=== PATIENT | male | born 1945 | race Caucasian/White ===

== ENCOUNTER → 2018-01-14 | Outpatient (CLI) | payer MEDICARE ==
[2018-01-14 10:23] LABS: HCT 44.4 % (39.0-53.0); HGB 14.4 gm/dL (13.0-17.5); MCHC 32.5 g/dL (31.0-37.0); MCV 89.5 fL (80.0-100.0); Platelet Count 237 k/uL (150-450); RBC 4.96 m/uL (4.30-5.90); RDW 12.7 % (11.5-15.5); WBC 8.2 k/uL (3.8-10.6)
[2018-01-14 10:33] LABS: ALT 32 U/L (21-72); AST 14 U/L (17-59); Albumin 4.2 g/dL (3.5-5.0); Alkaline Phosphatase 95 U/L (38-126); Anion Gap 13 mmol/L; Blood Urea Nitrogen 24 mg/dL (9-20); Calcium 9.7 mg/dL (8.4-10.2); Carbon Dioxide 22 mmol/L (22-30); Chloride 108 mmol/L (98-107); Glucose 90 mg/dL (74-99); Potassium 4.7 mmol/L (3.5-5.1); Sodium 143 mmol/L (137-145); Total Bilirubin 0.3 mg/dL (0.2-1.3); Total Protein 7.1 g/dL (6.3-8.2)
[2018-01-14 10:37] LABS: Partial Thromboplastin Time 25.9 sec (22.0-30.0); Prothrombin Time 9.9 sec (9.0-12.0)
[2018-01-14 10:44] LABS: Appearance,Urine Clear (Clear); Bilirubin,Urine Negative (Negative); Blood,Urine Small (Negative); Color,Urine Yellow; Glucose,Urine (UA) Negative (Negative); Ketones,Urine Negative (Negative); Leukocyte Esterase,Urine Negative (Negative); Mucus,Urine Rare /hpf; Nitrite,Urine Negative (Negative); Protein,Urine Negative (Negative); RBC,Urine 1 /hpf (0-5); Specific Gravity,Urine 1.019 (1.001-1.035); Squamous Epithelial Cell,Urine <1 /hpf (0-4); Transitional Epi Cells,Urine <1 /hpf (0-1); Urobilinogen,Urine <2.0 mg/dL (<2.0); WBC,Urine 1 /hpf (0-5)
== END | disposition home or self-care (01) ==
LOC: LABPAT 09:16
PROVIDERS: ATTEND Orthopaedic Surgery Sports Medicine
DX: Z01.812 Encounter for preprocedural laboratory examination (principal); Z79.01 Long term (current) use of anticoagulants; Z01.818 Encounter for other preprocedural examination
CPT/HCPCS: 80053; 81001; 85027; 85610; 85730; 87070

== ENCOUNTER → 2018-01-20 | Outpatient (CLI) | payer MEDICARE ==
--- NOTE | 2018-01-20 09:09 | CT ---
EXAMINATION TYPE: CT shoulder LT wo con DATE OF EXAM: 01/20/2018 COMPARISON: NONE HISTORY: Left sided shoulder pain and decreased range of motion. No known injury CT DLP: 460 mGycm Automated exposure control for dose reduction was used. FINDINGS: There is complete loss of the glenohumeral joint space with remodeling of the glenoid. Hypertrophic s purring along the inferior margin of the humeral head. No acute fracture. Benign cystic changes involving the head likely post arthritic. There is arthropathy of the AC joint with narrowing of the joint space and hypertrophic spurring like ly result in a degree of impingement. There is calcification along the expected course of the biceps tendon suggestive of calcific tendinos is. There also suggestion of markedly increased fluid surrounding the biceps tendon correlate for bic ipital tendinosis. Coronary artery calcification is seen. Visualized lung baptiste clear. IMPRESSION: 1. Severe arthropathy of the glenohumeral joint with complete loss of joint space and remodeling the glenoid. Suspect there is cartilaginous loss along the articular surface. 2. [id number] AC joint arthropathy with probable impingement. 3. Increased fluid surrounding the biceps tendon within the groove. Additionally is calcification meño ng the expected course of the biceps tendon near the rotator interval. Correlate for calcific tendino sis.
== END | disposition home or self-care (01) ==
LOC: RADCTMAIN 08:26
PROVIDERS: ATTEND Orthopaedic Surgery Sports Medicine
DX: M12.812 Other specific arthropathies, not elsewhere classified, left shoulder (principal)

== ENCOUNTER 2018-02-05 13:47 | Inpatient (IN) | payer MEDICARE ==
[2018-01-26 14:25] VITALS: BMI 27.9
[~2018-02-05 13:47] MED LIST: ACETAMINOPHEN TAB 500 MG TAB PO ONE; LIDOCAINE 1% 20 ML VIAL (10MG/ML) FOR IV START INTRADERMA PRN; MELOXICAM 7.5 MG TAB PO ONE; ONDANSETRON 4 MG/2 ML VIAL IVP ONE; TRANEXAMIC ACID 1,000 MG in SODIUM CHLORIDE 0.9% 50 ML IVPB ONE; ceFAZolin IN SWFI 2 GM/20 ML SYRINGE IVP ONE; fentaNYL (PF) 50 MCG/ML 2 ML AMP IV PRN
[2018-02-05] MEDS ORDERED: LIDOCAINE 1% 20 ML VIAL (10MG/ML) FOR IV START IV ONE (14:17)
[2018-02-05] MEDS ORDERED: DEXAMETHASONE SOD PHOSPHATE 10 MG/ML 1 ML VIAL IV ONE (14:17)
[2018-02-05] MEDS: LACTATED RINGERS 1,000 ML IV SCH ×2 (14:17→20:38)
[2018-02-05 14:19] LABS: Glucose,Whole Blood 97 mg/dL (75-99)
[2018-02-05] MEDS ORDERED: PHENYLEPHRINE-0.9% NACL SYG 1 MG/10 ML SYRINGE ONE (15:01)
[2018-02-05] MEDS ORDERED: MIDAZOLAM 2 MG/2 ML VIAL ONE (15:01)
[2018-02-05] MEDS ORDERED: NEOSTIGMINE 1 MG/ML 10 ML VIAL ONE (15:01)
[2018-02-05] MEDS ORDERED: PROPOFOL 10 MG/ML 20 ML VIAL IV ONE (15:01)
[2018-02-05] MEDS ORDERED: ROCURONIUM BROMIDE 10 MG/ML 10 ML VIAL IV ONE (15:01)
[2018-02-05] MEDS ORDERED: SUCCINYLCHOLINE CHLORIDE 100 MG/5 ML SYR IV ONE (15:01)
[2018-02-05] MEDS ORDERED: TRANEXAMIC ACID 1,000 MG/10 ML VIAL ONE (15:01)
[2018-02-05] MEDS ORDERED: SODIUM CHLORIDE 0.9% 100 ML BAG ONE (15:01)
[2018-02-05] MEDS ORDERED: fentaNYL (PF) 50 MCG/ML 2 ML AMP ONE (15:01)
[2018-02-05] MEDS ORDERED: ePHEDrine SULFATE/0.9% NACL/PF 50 MG/5 ML SYRINGE IV ONE (15:01)
[2018-02-05] MEDS ORDERED: LIDOCAINE 1% INJ 10MG/ML (20 ML MDV) ONE (15:01)
[2018-02-05] MEDS ORDERED: GLYCOPYRROLATE 0.2 MG/ML 2 ML VIAL ONE (15:01)
[2018-02-05] MEDS ORDERED: ROPIVACAINE 5 MG/ML 30 ML VIAL ONE (15:01)
[2018-02-05] MEDS ORDERED: ceFAZolin 3,000 MG in SODIUM CHLORIDE 0.9% IRRIGATIO 3,000 ML IRRIGATION ONE (15:36)
[2018-02-05] MEDS ORDERED: LACTATED RINGERS 1,000 ML IV ONE (15:38)
[2018-02-05] MEDS ORDERED: VANCOMYCIN 1,000 MG VIAL MISCELLANE ONE (15:54)
[2018-02-05] MEDS ORDERED: METOCLOPRAMIDE 5 MG/ML 2 ML VIAL IVP PRN (17:32)
[2018-02-05] MEDS ORDERED: MORPHINE SULFATE 4MG/4ML SYRG IVP PRN ×3 (17:32)
[2018-02-05] MEDS ORDERED: ONDANSETRON 4 MG/2 ML VIAL IVP PRN (17:32)
[2018-02-05] MEDS ORDERED: diphenhydrAMINE 25 MG CAP PO PRN (17:32)
[2018-02-05] MEDS ORDERED: PROCHLORPERAZINE SUPPOSITORY 25 MG SUPP RECTAL PRN (17:32)
[2018-02-05] MEDS ORDERED: TEMAZEPAM 15 MG CAP PO PRN (17:32)
[2018-02-05] MEDS ORDERED: HYDROcodone/APAP 7.5-325MG 1 EACH TAB PO PRN (17:35)
[2018-02-05 17:53] LABS: Glucose,Whole Blood 142 mg/dL (75-99)
--- NOTE | 2018-02-05 17:55 | XR ---
EXAMINATION TYPE: XR shoulder limited LT DATE OF EXAM: 02/05/2018 COMPARISON: NONE HISTORY: Shoulder surgery TECHNIQUE: Single view FINDINGS: There is a left shoulder prosthesis. Components appear in anatomic position. I see no compl icating process. IMPRESSION: No complicating process seen.
--- NOTE | 2018-02-05 18:36 | OP ---
OPERATIVE REPORT DATE OF PROCEDURE: 02/05/2018. SURGEON: Dilshad Leyva MD BEAUTY COUNSELOR: Camilo Caruso PA-C PREOPERATIVE DIAGNOSIS: Left shoulder osteoarthritis. POSTOPERATIVE DIAGNOSIS: Left shoulder osteoarthritis. OPERATION: 1. Left total shoulder arthroplasty. 2. Left shoulder long head of the biceps tenodesis. ANESTHESIA: General endotracheal. ESTIMATED BLOOD LOSS: 300 mL DRAINS: One deep drain. COMPLICATIONS: None apparent. DISPOSITION: Post-anesthesia Care Unit. INDICATIONS: Mr. Suazo is a very pleasant 72-year-old gentleman with long-standing left shoulder pain. Workup including x-rays revealed advanced osteoarthrosis of the left shoulder. At this point it is felt that he has failed conservative management and he would like to proceed with operative intervention. The risks of the procedure were discussed with him in detail. These risks include but are not limited to risk of infection, nerve damage, bleeding, pain, instability in the shoulder, loosening of the implants and deep infection. There is also a small risk of deep vein thrombosis which could lead to fatal pulmonary embolism. The patient understood the risks. All of his questions with regards to the risks of the procedure were answered to his satisfaction. Appropriate informed consent was obtained. DESCRIPTION OF THE PROCEDURE: The patient was identified in the preoperative holding area. Surgical site was marked by both the patient and myself. He was given 2 grams of Ancef IV for prophylactic purposes. He was then transferred to the operative suite. He was placed supine on the operating room table. General anesthetic was then administered and dosed per the anesthesia department without apparent complication. Examination under anesthesia was then performed of the left shoulder. He had elevation to 110 degrees. External rotation at the side was to 20 degrees. The patient's left upper extremity was then prepped and draped in the usual sterile fashion. Standard surgical pause was then undertaken to ensure that we were operating on the correct site and that appropriate preoperative antibiotics had been given. All staff in the room were in agreement and we proceeded. The acromion, AC joint, clavicle and coracoid were marked with a surgical pen. A planned incision starting at the level of the clavicle and extending distally over the deltopectoral interval approximately 1 cm lateral to the coracoid was marked with a surgical pen. The incision was then made with a 10-blade scalpel. Dissection was carried down sharply to the deltoid fascia. The deltopectoral interval was identified at the level of the clavicle. A small band retractor was placed onto the proximal deltoid. I then released the deltoid fascia on the lateral aspect of the cephalic vein. The vein was left in its bed medially. The cephalic vein was protected throughout the entire case. I then identified the clavipectoral fascia. It was incised proximally to the level of the coracoacromial ligament. The coracoacromial ligament was left intact. I then used my finger to spread the interval between the conjoint tendon and the subscapularis. I felt for the axillary nerve, which was readily palpable. I then cleared the subacromial and subdeltoid spaces of bursal and scar tissue. I then utilized a Dumont retractor to hold the deltoid and expose the humeral head. I then proceeded with release of the subscapularis and the anterior and inferior shoulder capsule. The rotator cuff was inspected. It was found to be intact. The rotator interval was identified. The course of the biceps tendon was also identified. I then released the biceps from its sheath. I did a soft tissue tenodesis with multiple 0 Vicryl interrupted sutures into the surrounding soft tissue. I then released the rotator interval. It was released at the base of the coracoid and then out laterally. The subscapularis and the capsule were then released intratendinously. The subscapularis and capsule were released, extended distally in a lazy-S fashion approximately 1 cm medial to the biceps tendon. I then continued to release the capsule along the inferior neck in a vertical fashion to about the 6 o'clock position. Great care was taken to ensure that the capsule was always visualized as it was released to avoid injuring the axillary nerve. I then brought a Marsh melting supervisor with the arm externally rotated and abducted. I continued to release the capsule inferomedially to the 4 o'clock position. The inferior osteophytes were now removed as well. This was done with a rongeur. I then proceeded with preparation of the humerus. I removed all the goat's faust osteophytes. I then removed the subchondral plate from the superior aspect of the humeral head utilizing a large rongeur. I then used a starter reamer to gain access to the humeral canal. This was approximately 1 cm medial to the rotator cuff insertion and 1 cm posterior to the bicipital groove. I then prepared the humeral canal with hand reaming. I started with a 6 mm reamer and progressed incrementally until firm resistance was encountered. This was at 15 mm. The reamer handle was then left in place. I then utilized a humeral resection guide set at 30 degrees of retrotorsion. The cutting block was set 1 to 2 mm above the insertion of the rotator cuff. I then proceeded to osteotomize the head with an oscillating saw. I removed the resection guide and then completed the osteotomy. I then proceed with trial stem placement. A trial size was then broached up to a trial size 15. This was done at 30 degrees of retroversion. The 15 mm trial stem was then placed. I then proceeded with trial reduction. I started with a 46 x 18 head. This seemed a little loose. I then increased to 46 x 21 x 50 head, which seemed to fit very nicely. The head fit opposite the glenoid. The rotator cuff was not tented. The internal rotation was 90 degrees. Elevation was to 150 degrees and the translation was one half the humeral head in neutral rotation and one quarter of the humeral head inferiorly in 15 to 20 degrees of abduction. I then removed the trial head. The stem was left in place to protect the proximal humerus. I then proceeded with exposure of the glenoid. At this point a bone hook was used to pull the humerus out laterally. I inspected the joint for any loose bodies. The condition of the cuff again was inspected. It was in good condition. There was no evidence of any tearing. The Bhattman retractor was then placed on the posterior glenoid rim. The arm was placed in approximately 80 degrees of abduction and in slight flexion on the Marsh stand. I then proceeded to remove the hypertrophic labrum to definitively identify the actual glenoid. I then selected the size of the glenoid. A large-size glenoid seemed to fit very nicely. I then utilized a starter drill to make the centering hole. I then proceeded to ream the glenoid fossa. This was done with a large-size reamer. The reaming was taken down to paprika signs. I had a nice bleeding surface. There was a tiny bit of posterior inferior loss, and I preferentially took a slightly more anterior glenoid with the reaming. I then proceeded to place the glenoid drill holes. The peripheral drill holes were then placed and the center hole was drilled as well. I then placed the trial large-size glenoid, and it fit very nicely onto the glenoid. I then proceeded with cementing. I Waterpik'd the wound and the bone. The drill holes were then packed with [employer] sponges. The cement was mixed on the back table by the cosmetic sales assistant. The drill holes were then packed with cement utilizing a 20 mL syringe. These were packed very tightly. A small amount of cement was then placed on the posterior aspect of the real glenoid component. I then impacted the real glenoid component into place. It was a Biomet large-sized pegged glenoid component with a Regenerex central peg. Excess cement was removed utilizing a freer elevator. Pressure was held on the glenoid component until the cement had hardened. I then removed the Bhattman retractor. We then proceeded with a humeral component trial reduction with the real glenoid. The 46 x 21 x 50 head was then placed back onto the stem. Again this was taken through a trial. The head up of the glenoid. The rotator cuff was not tented. Elevation was 150 degrees. Internal rotation was to 90 degrees and translation was one half of the head in neutral rotation and one quarter of the head in 15 to 20 degrees of abduction. I then had the sales account representative open a 46 x 21 x 50 real head and a size 15 Biomet Mini Stem. The stem was then impacted into the canal in 30 degrees of retrotorsion. The real head was then impacted onto the stem. The shoulder was reduced. Prior to placing the real head, I placed multiple 0 Vicryl interrupted sutures to close the rotator interval. I then proceeded with closure. The wound was again thoroughly irrigated with sterile saline solution with antibiotic added. The rotator interval sutures were tied tightly. The subscapularis and anterior capsule were repaired with #2 FiberWire. The wound was again thoroughly irrigated with sterile saline solution with antibiotic added. A deep drain was then placed and brought out superiorly away from the incision. Vancomycin powder was then spread in the wound. Again the deltopectoral interval was then closed with interrupted 0 Vicryl suture. Again the wound was thoroughly irrigated. The remainder of the 1 gram of vancomycin powder was then placed in the wound. Subcutaneous tissue was closed with 2-0 Vicryl interrupted suture and the skin was closed with a running 3-0 Quill suture. Dermabond was applied to the incision. Sterile compressive dressing was then applied. The patient's left upper extremity was placed into a standard sling. All sponge and needle counts were deemed correct prior to closure. The patient tolerated the procedure without apparent complication. He was transferred to the recovery room in stable condition. DEBORA / YOVANY: [id number] /
[2018-02-05] MEDS: DOXYCYCLINE 50 MG CAP PO SCH (20:41)
[2018-02-05 21:34] LABS: Glucose,Whole Blood 151 mg/dL (75-99)
[2018-02-05] MEDS: ceFAZolin IN SWFI 2 GM/20 ML SYRINGE IVP SCH (23:12)
[2018-02-06] MEDS: HYDROcodone/APAP 7.5-325MG 1 EACH TAB PO PRN ×4 (05:50→21:29)
[2018-02-06] MEDS: LACTATED RINGERS 1,000 ML IV SCH ×4 (06:02→21:28)
[2018-02-06 07:10] LABS: Basophils % (A) 0 %; Eosinophils % (A) 0 %; HCT 35.3 % (39.0-53.0); Lymphocytes # (A) 1.5 k/uL (1.0-4.8); Lymphocytes % (A) 15 %; MCH 29.4 pg (25.0-35.0); MCHC 33.9 g/dL (31.0-37.0); MCV 86.8 fL (80.0-100.0); Mean Platelet Volume 7.3; Monocytes # (A) 0.7 k/uL (0-1.0); Monocytes % (A) 7 %; Neutrophils # (A) 7.9 k/uL (1.3-7.7); Neutrophils % (A) 76 %; Platelet Count 192 k/uL (150-450); RBC 4.07 m/uL (4.30-5.90); RDW 12.5 % (11.5-15.5); WBC 10.3 k/uL (3.8-10.6)
--- NOTE | 2018-02-06 07:10 | P.ONQ ---
Anesthesiology Proc Note - PNB - Peripheral Nerve Block Performed Left Interscalene Single Time Out Performed: Yes Procedure Start Time: 18:23 Procedure Stop Time: 18: Indication: Acute Post-Operative Pain, Requested by physician Sedation Type: Sedate with meaningful contact maintained Preparation: Sterile Prep Needle Size: 50mm (2") Needle Gauge: 21 Technique: Ultrasound (ropi .5% 30cc) Blood Aspirated: No Pain Paresthesia on Injection Noted: No Resistance on Injection: Normal Events: Uneventful and Well Tolerated
[2018-02-06 07:12] LABS: Glucose,Whole Blood 109 mg/dL (75-99)
[2018-02-06] MEDS: DOXYCYCLINE 50 MG CAP PO SCH ×2 (08:01→21:00)
[2018-02-06] MEDS: ceFAZolin IN SWFI 2 GM/20 ML SYRINGE IVP SCH (08:02)
--- NOTE | 2018-02-06 09:25 | P.DS ---
Providers Date of admission: 02/05/18 13:47 Expected date of discharge: 02/06/18 Attending physician: Dilshad Leyva Consults: 02/05/18 17:32 Consult Physician Routine Consulting Provider: Clifton Yoder Reason/Comments: post op medical management Do you want consulting provider notified?: Yes Primary care physician: Clifton Yoder - Discharge Diagnosis(es) (1) Osteoarthritis of left shoulder Patient was admitted to the OR on 02/05/2018 to undergo Left Total Shoulder Arthroplasty. He had failed conservative measures as an outpatient and desired to proceed with elective surgery after given informed consent He underwent the above procedure which he tolerated well without complication. Postoperative hospital course has remained without complication. On day of discharge he is afebrile, vital signs stable, labs within acceptable ranges, tolerating by mouth meds and diet, voiding without difficulty, positive flatus, denies abdominal pain or calf pain, pain is controlled on oral pain medication and has no new complaints. Wound is benign, neurovascular status is intact, calf is soft and nontender, abdomen soft and nontender. Review of systems is negative for numbness, tingling, fever, chills, chest pain, shortness breath, nausea, vomiting, dizziness, headaches, slurred speech or other. Current Visit: Yes Status: Acute Priority: Medium Procedures: Left Total Shoulder Arthroplasty Patient Condition at Discharge: Good Plan - Discharge Summary Discharge Rx Participant: No New Discharge Prescriptions: New Docusate [Colace] 100 mg PO BID #60 capsule Doxycycline Hyclate 100 mg PO BID #10 tab HYDROcodone/APAP 7.5-325MG [Holton 7.5-325] 1 - 2 tab PO Q6HR PRN #60 tab PRN Reason: Pain No Action metFORMIN HCL [Glucophage] 500 mg PO BID Simvastatin [Zocor] 20 mg PO HS Sertraline [Zoloft] 200 mg PO HS Ibuprofen [Motrin] 800 mg PO BID Gabapentin [Neurontin] 300 mg PO BID Discharge Medication List Gabapentin [Neurontin] 300 mg PO BID 01/26/18 [History] Ibuprofen [Motrin] 800 mg PO BID 01/26/18 [History] Sertraline [Zoloft] 200 mg PO HS 01/26/18 [History] Simvastatin [Zocor] 20 mg PO HS 01/26/18 [History] metFORMIN HCL [Glucophage] 500 mg PO BID 01/26/18 [History] Docusate [Colace] 100 mg PO BID #60 capsule 02/06/18 [Rx] Doxycycline Hyclate 100 mg PO BID #10 tab 02/06/18 [Rx] HYDROcodone/APAP 7.5-325MG [Holton 7.5-325] 1 - 2 tab PO Q6HR PRN #60 tab [Rx] Follow up Appointment(s)/Referral(s): Dilshad Leyva MD [STAFF PHYSICIAN] - 2 Weeks Activity/Diet/Wound Care/Special Instructions: Keep wound clean and dry Take meds as directed Follow-up with Dr. Leyva in office Non weightbearing Discharge Disposition: HOME SELF-CARE
[2018-02-06 11:15] LABS: Glucose,Whole Blood 114 mg/dL (75-99)
[2018-02-06] MEDS: hydrOXYzine PAMOATE 25 MG CAP PO PRN ×3 (11:35→21:38)
[2018-02-06] MEDS ORDERED: HYDROmorphone 2 MG TAB PO PRN ×3 (11:44→11:48)
[2018-02-06] MEDS ORDERED: TAMSULOSIN 0.4 MG CAP.ER.24H PO SCH ×2 (11:45→18:30)
[2018-02-06 11:50] LABS: Anion Gap 10 mmol/L; Blood Urea Nitrogen 22 mg/dL (9-20); Calcium 8.6 mg/dL (8.4-10.2); Carbon Dioxide 23 mmol/L (22-30); Chloride 105 mmol/L (98-107); Glucose 100 mg/dL (74-99); Sodium 138 mmol/L (137-145)
--- NOTE | 2018-02-06 15:09 | P.CONS ---
History of Present Illness - Reason for Consult Consult date: 02/06/18 - Chief Complaint medical management - History of Present Illness 72 years old male patient of Dr. Yoder with past medical history of diabetes hyperlipidemia osteoarthritis it is admitted for an elective repair of left shoulder arthritis status post left shoulder arthroplasty day one. Patient denies any chest pain, shortness of breath. He denies any history of heart failure, DVTs or pulmonary embolism or coronary artery disease. He does endorse soreness of his left shoulder. Patient has not passed urine and has required straight cath twice. Vitals are stable with a temp of 98 pulse rate 111, regular respiratory rate 16, blood pressure 123/73 saturating well on room air CBC and CMP are unremarkable. Glucose ranged from 109-142. Review of Systems Constitutional: Denies chills, Denies fever, Denies lethargy, Denies malaise, Denies poor appetite, Denies weakness, Denies weight loss Eyes: denies decreased vision, denies diplopia, denies discharge, denies pain Ears: deny: decreased hearing Ears, nose, mouth and throat: Denies dental pain, Denies headache, Denies nasal discharge, Denies nose pain Cardiovascular: Denies chest pain, Denies decreased exercise tolerance, Denies edema, Denies high blood pressure, Denies irregular heart beat, Denies palpitations, Denies paroxysmal nocturnal dyspnea, Denies rapid heart beat, Denies shortness of breath Respiratory: Denies congestion, Denies cough, Denies cough with sputum, Denies dyspnea, Denies home oxygen, Denies wheezing Gastrointestinal: Denies abdominal pain, Denies change in bowel habits, Denies coffee ground emesis, Denies early satiety, Denies excessive gas, Denies heartburn, Denies hematemesis, Denies hematochezia, Denies loss of appetite, Denies nausea, Denies vomiting Genitourinary: Denies dysuria, Denies flank pain, Denies kidney stones, Denies menorrhagia, Denies urgency, Denies urinary frequency endorses urinary retention Musculoskeletal: Denies gait dysfunction, Denies limitation of motion, Denies morning stiffness, Denies muscle cramps soreness in the left shoulder Integumentary: Denies rash, Denies wounds, Denies brittle nails, Denies change in hair/nails, Denies darkening of skin Neurological: Denies balance difficulties, Denies change in speech, Denies double vision, Denies gait dysfunction, Denies loss of vision, Denies motor disturbance, Denies numbness, Denies paralysis, Denies paresthesias, Denies seizures Psychiatric: Denies anxiety, Denies depression Endocrine: Denies excessive sweating, Denies excessive thirst, Denies high blood sugars, Denies palpitations Hematologic/Lymphatic: Denies easy bruising, Denies lymphadenopathy Past Medical History Past Medical History: Diabetes Mellitus, Hyperlipidemia, Osteoarthritis (OA) History of Any Multi-Drug Resistant Organisms: None Reported Past Surgical History: Cholecystectomy, Joint Replacement, Orthopedic Surgery Additional Past Surgical History / Comment(s): BILAT TKA, LT SIDE PELVIC RECONSTRUCTION, BILAT CTR, VILAT CATARACTS REMOVED, COLONOSCOY, LASER SX BILAT EYES AFTER CATARACT SX, RT SHOULDER REPLACEMENT Past Anesthesia/Blood Transfusion Reactions: No Reported Reaction Past Psychological History: Anxiety, Depression Smoking Status: Former smoker Past Alcohol Use History: None Reported Additional Past Alcohol Use History / Comment(s): QUIT SMOKING 1973 Past Drug Use History: None Reported - Past Family History Mother Family Medical History: No Reported History Additional Family Medical History / Comment(s): Mother had an aneurysm rupture at 88 Father Family Medical History: CVA/TIA, Diabetes Mellitus Additional Family Medical History / Comment(s): Patient had 3 brothers and one brother having rheumatoid arthritis. One sister of brain aneurysm at the age of 31. He has 2 kids 1 boy and a girl with no significant medical problems Medications and Allergies Home Medications Medication Instructions Recorded Confirmed Type Gabapentin [Neurontin] 300 mg PO BID 01/26/18 02/05/18 History Ibuprofen [Motrin] 800 mg PO BID 01/26/18 02/05/18 History Sertraline [Zoloft] 200 mg PO HS 01/26/18 02/05/18 History Simvastatin [Zocor] 20 mg PO HS 01/26/18 02/05/18 History metFORMIN HCL [Glucophage] 500 mg PO BID 01/26/18 02/05/18 History Docusate [Colace] 100 mg PO BID #60 capsule 02/06/18 Rx Doxycycline Hyclate 100 mg PO BID #10 tab 02/06/18 Rx HYDROcodone/APAP 7.5-325MG [Alva 1 - 2 tab PO Q6HR PRN #60 tab 02/06/18 Rx 7.5-325] Allergies Allergy/AdvReac Type Severity Reaction Status Date / Time warfarin [From Coumadin] Allergy CAUSES Verified 02/05/18 18:25 BLOOD TO CLOT PER PT Physical Exam Vitals: Vital Signs Temp Pulse Resp BP BP Pulse Ox 02/06/18 07:25 16 02/06/18 07:00 98.3 F 85 16 117/67 95 02/06/18 01:15 98.0 F 111 H 16 123/73 95 02/05/18 21:05 95 16 121/65 97 02/05/18 20:50 98 16 117/66 97 02/05/18 20:35 95 16 120/63 96 02/05/18 20:20 93 16 123/66 96 02/05/18 20:05 105 H 16 91/51 95 02/05/18 19:50 81 16 126/67 90 L 02/05/18 19:35 92 16 117/55 94 L 02/05/18 19:20 97.4 F L 89 16 120/58 97 02/05/18 18:45 77 16 126/65 94 L 02/05/18 18:34 76 16 149/69 94 L 02/05/18 18:15 75 16 147/66 94 L 02/05/18 18:01 89 16 150/72 95 02/05/18 17:46 95 16 170/65 97 02/05/18 17:32 97.5 F L 118 H 16 161/78 96 02/05/18 14:01 97.5 F L 39 L 16 164/86 98 Intake and Output 02/05/18 02/06/18 02/06/18 22:59 06:59 14:59 Intake Total 2301 800 360 Output Total 300 600 800 Balance 2000 200 -440 Intake: IV 1501 Intake, IV Titration 800 800 Amount Lactated Ringers 1,000 ml 800 800 @ 100 mls/hr IV .Q10H [facility] Rx#:[id number] Oral 360 Output: Urine 600 800 Straight 600 750 Estimated Blood Loss 300 Other: Voiding Method Urinal # Voids 3 3 Weight 93.44 kg Results CBC & Chem 7: 02/06/18 06:30 02/06/18 06:30 Labs: Abnormal Lab Results - Last 24 Hours (Table) 02/05/18 02/05/18 02/06/18 Range/Units 17:51 21:08 06:30 RBC 4.07 L (4.30-5.90) m/uL Hgb 12.0 L (13.0-17.5) gm/dL Hct 35.3 L (39.0-53.0) % Neutrophils # 7.9 H (1.3-7.7) k/uL POC Glucose (mg/dL) 142 H 151 H (75-99) mg/dL 02/06/18 02/06/18 Range/Units 06:51 11:11 RBC (4.30-5.90) m/uL Hgb (13.0-17.5) gm/dL Hct (39.0-53.0) % Neutrophils # (1.3-7.7) k/uL POC Glucose (mg/dL) 109 H 114 H (75-99) mg/dL Assessment and Plan Plan: #1 osteoarthritis of left shoulder status post left total shoulder arthroplasty. 02/05. Encourage mobility. Continue incentive spirometry for pulmonary prophylaxis. Pain management per primary team. 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 Continue Neurontin 300 mg twice daily CMP unremarkable. #3 hyperlipidemia continue Zocor 20 mg daily at bedtime #4 depression/anxiety continue sertraline 200 mg daily at bedtime #5 urinary retention likely secondary to BPH. Flomax initiated. Patient had to straight cath performed today. A follow-up with urology on discharge. Thank you for the consult. I'll be happy to assist in patient's medical need while in the hospital
[2018-02-06 17:19] LABS: Glucose,Whole Blood 108 mg/dL (75-99)
[2018-02-06 21:01] LABS: Glucose,Whole Blood 130 mg/dL (75-99)
[2018-02-07] MEDS: HYDROcodone/APAP 7.5-325MG 1 EACH TAB PO PRN ×3 (03:38→16:07)
[2018-02-07] MEDS: hydrOXYzine PAMOATE 25 MG CAP PO PRN ×3 (03:39→16:07)
[2018-02-07 06:58] LABS: Glucose,Whole Blood 108 mg/dL (75-99)
[2018-02-07] MEDS: DOXYCYCLINE 50 MG CAP PO SCH (09:19)
[2018-02-07] MEDS: LACTATED RINGERS 1,000 ML IV SCH (09:27)
--- NOTE | 2018-02-07 10:05 | P.PN ---
Subjective Progress Note Date: 02/07/18 This is a 72-year-old male who is status post left total shoulder arthroplasty. This is postoperative day #2. Patient's discharge was postponed as patient has been unable to pass urine. Patient currently has a Andrews catheter. Patient states the pain in his left shoulder is well controlled and he has been icing it. Patient denies any fever/chills, numbness, weakness or tingling. Objective - Vital Signs Vital signs: Vital Signs Temp 97.9 F 02/07/18 07:00 Pulse 99 02/07/18 07:00 Resp 14 02/07/18 07:00 BP 120/65 02/07/18 07:00 Pulse Ox 97 02/07/18 07:00 Intake & Output 02/06/18 02/07/18 02/07/18 18:59 06:59 18:59 Intake Total 840 Output Total 2900 450 Balance -2060 -450 Intake: Oral 840 Output: Urine 2900 450 Straight 1150 Other: Voiding Method Indwelling Catheter Indwelling Catheter Indwelling Catheter - Exam On exam patient is lying comfortably in bed in no acute distress. Patient is alert and oriented 3. Dressing is clean, dry and intact. Patient has full range of motion of the left wrist and hand. There is mild soft tissue swelling. Sensation intact. Capillary refill is normal at less than 2 seconds. Neurovascular status and circulatory status are intact. - Labs CBC & Chem 7: 02/06/18 06:30 02/06/18 06:30 Labs: Abnormal Lab Results - Last 24 Hours (Table) 02/06/18 02/06/18 02/06/18 Range/Units 06:30 11:11 17:14 BUN 22 H (9-20) mg/dL Glucose 100 H (74-99) mg/dL POC Glucose (mg/dL) 114 H 108 H (75-99) mg/dL 02/06/18 02/07/18 Range/Units 20:58 06:54 BUN (9-20) mg/dL Glucose (74-99) mg/dL POC Glucose (mg/dL) 130 H 108 H (75-99) mg/dL Assessment and Plan (1) Primary osteoarthritis, left shoulder Current Visit: Yes Status: Acute Code(s): M19.012 - PRIMARY OSTEOARTHRITIS, LEFT SHOULDER SNOMED Code(s): 64521862 (2) Status post total shoulder arthroplasty Current Visit: Yes Status: Acute Code(s): Z96.619 - PRESENCE OF UNSPECIFIED ARTIFICIAL SHOULDER JOINT SNOMED Code(s): 707769587 Plan: #1. Continue routine postoperative care and nonweightbearing to left upper extremity. #2. Daily dressing changes. #3. Continue pain control. #4. Appreciate input from medicine. #5. Appreciate input from urology. #6. Patient is in good condition for discharge from an orthopedic standpoint. Patient may be discharged when cleared by urology and internal medicine.
--- NOTE | 2018-02-07 11:11 | P.GSCN ---
History of Present Illness Consult date: 02/07/18 Reason for Consult: Urinary Retention Requesting physician: David Bland History of present illness: The patient is a 72-year-old white male with an unremarkable urologic history, other than the fact he underwent a left orchiectomy for cryptorchidism in the service. He underwent a left total shoulder arthroplasty on 02/05/2018. He developed urinary retention yesterday. I'm consulted for this reason. Hemostasis 600 mL of urine was drained from his bladder. He denies any pre- existing voiding difficulty. Review of Systems - Genitourinary Denies dysuria, Denies hematuria Past Medical History Past Medical History: Diabetes Mellitus, Hyperlipidemia, Osteoarthritis (OA) History of Any Multi-Drug Resistant Organisms: None Reported Past Surgical History: Cholecystectomy, Joint Replacement, Orthopedic Surgery Additional Past Surgical History / Comment(s): BILAT TKA, LT SIDE PELVIC RECONSTRUCTION, BILAT CTR, BILAT CATARACTS REMOVED, COLONOSCOY, LASER SX BILAT EYES AFTER CATARACT SX, RT SHOULDER REPLACEMENT, LEFT ORCHIECTOMY Past Anesthesia/Blood Transfusion Reactions: No Reported Reaction Past Psychological History: Anxiety, Depression Smoking Status: Former smoker Past Alcohol Use History: None Reported Additional Past Alcohol Use History / Comment(s): QUIT SMOKING 1973 Past Drug Use History: None Reported - Past Family History Mother Family Medical History: No Reported History Additional Family Medical History / Comment(s): Mother had an aneurysm rupture at 88 Father Family Medical History: CVA/TIA, Diabetes Mellitus Additional Family Medical History / Comment(s): Patient had 3 brothers and one brother having rheumatoid arthritis. One sister of brain aneurysm at the age of 31. He has 2 kids 1 boy and a girl with no significant medical problems Medications and Allergies Home Medications Medication Instructions Recorded Confirmed Type Gabapentin [Neurontin] 300 mg PO BID 01/26/18 02/05/18 History Ibuprofen [Motrin] 800 mg PO BID 01/26/18 02/05/18 History Sertraline [Zoloft] 200 mg PO HS 01/26/18 02/05/18 History Simvastatin [Zocor] 20 mg PO HS 01/26/18 02/05/18 History metFORMIN HCL [Glucophage] 500 mg PO BID 01/26/18 02/05/18 History Docusate [Colace] 100 mg PO BID #60 capsule 02/06/18 Rx Doxycycline Hyclate 100 mg PO BID #10 tab 02/06/18 Rx HYDROcodone/APAP 7.5-325MG [[place] 1 - 2 tab PO Q6HR PRN #60 tab 02/06/18 Rx 7.5-325] Tamsulosin [Flomax] 0.4 mg PO DAILY #14 cap 02/07/18 Rx Allergies Allergy/AdvReac Type Severity Reaction Status Date / Time warfarin [From Coumadin] Allergy CAUSES Verified 02/05/18 18:25 BLOOD TO CLOT PER PT Surgical - Exam Vital Signs Temp Pulse Resp BP Pulse Ox 97.5 F L 39 L 16 164/86 98 02/05/18 14:01 02/05/18 14:01 02/05/18 14:01 02/05/18 14:01 02/05/18 14:01 - General well developed, well nourished, no distress - Respiratory normal respiratory effort - Abdomen Abdomen: soft, non tender, no guarding, no rigid, no rebound - Genitourinary normal penis with no external lesions, testicles non-tender left: testicle absent - Rectum Rectum: other (Normal anal sphincter tone, no rectal masses. The prostate is mildly enlarged and smooth.) - Psychiatric oriented to time, oriented to person, oriented to place, speech is normal, memory intact Results - Labs 02/06/18 06:30 02/06/18 06:30 Abnormal Lab Results - Last 24 Hours (Table) 02/06/18 02/06/18 02/06/18 Range/Units 06:30 11:11 17:14 BUN 22 H (9-20) mg/dL Glucose 100 H (74-99) mg/dL POC Glucose (mg/dL) 114 H 108 H (75-99) mg/dL 02/06/18 02/07/18 Range/Units 20:58 06:54 BUN (9-20) mg/dL Glucose (74-99) mg/dL POC Glucose (mg/dL) 130 H 108 H (75-99) mg/dL Diabetes panel 02/06/18 Range/Units 06:30 Sodium 138 (137-145) mmol/L Potassium 4.0 (3.5-5.1) mmol/L Chloride 105 (98-107) mmol/L Carbon Dioxide 23 (22-30) mmol/L BUN 22 H (9-20) mg/dL Creatinine 0.72 (0.66-1.25) mg/dL Glucose 100 H (74-99) mg/dL Calcium 8.6 (8.4-10.2) mg/dL Calcium panel 02/06/18 Range/Units 06:30 Calcium 8.6 (8.4-10.2) mg/dL Pituitary panel 02/06/18 Range/Units 06:30 Sodium 138 (137-145) mmol/L Potassium 4.0 (3.5-5.1) mmol/L Chloride 105 (98-107) mmol/L Carbon Dioxide 23 (22-30) mmol/L BUN 22 H (9-20) mg/dL Creatinine 0.72 (0.66-1.25) mg/dL Glucose 100 H (74-99) mg/dL Calcium 8.6 (8.4-10.2) mg/dL Adrenal panel 02/06/18 Range/Units 06:30 Sodium 138 (137-145) mmol/L Potassium 4.0 (3.5-5.1) mmol/L Chloride 105 (98-107) mmol/L Carbon Dioxide 23 (22-30) mmol/L BUN 22 H (9-20) mg/dL Creatinine 0.72 (0.66-1.25) mg/dL Glucose 100 H (74-99) mg/dL Calcium 8.6 (8.4-10.2) mg/dL Assessment and Plan (1) Postoperative urinary retention Current Visit: Yes Status: Acute Code(s): N99.89 - OTH POSTPROCEDURAL COMPLICATIONS AND DISORDERS OF SYS; R33.8 - OTHER RETENTION OF URINE SNOMED Code(s): 333607111 Plan: The patient is to be discharged home today with his Andrews catheter. Tamsulosin was prescribed. He will follow-up in our office in the morning 02/09/2018 for Andrews catheter removal. He will be seen later in the week to confirm adequate bladder emptying.
[2018-02-07 11:27] LABS: Glucose,Whole Blood 110 mg/dL (75-99)
[2018-02-07 15:17] VITALS: BP 114/69; PULSE 112; RESP 16; TEMP 99.8
--- NOTE | 2018-02-07 19:40 | P.PN ---
Subjective Progress Note Date: 02/07/18 72 years old male patient of Dr. Yoder with past medical history of diabetes hyperlipidemia osteoarthritis it is admitted for an elective repair of left shoulder arthritis status post left shoulder arthroplasty day one. Patient denies any chest pain, shortness of breath. He denies any history of heart failure, DVTs or pulmonary embolism or coronary artery disease. He does endorse soreness of his left shoulder. Patient has not passed urine and has required straight cath twice. Vitals are stable with a temp of 98 pulse rate 111, regular respiratory rate 16, blood pressure 123/73 saturating well on room air CBC and CMP are unremarkable. Glucose ranged from 109-142. 02/07/2018, patient has been cleared for discharge, both on urology service and orthopedics, patient's doing well, postoperative pain is controlled however he requires pain medication prior to discharge, patient was counseled regarding side effects off medication and caution was recommended for's use, patient is to continue on GI prophylaxis for avoiding constipation, patient's going to be going home on a Andrews catheter with plans for discontinuing it out patient by Dr. Donis on February 09, doxycycline pope recommended for discharge, and Flomax was started prior to discharge blood sugars and vital signs are stable, patient denies any lightheadedness or dizziness or orthostasis is at bedside and is comfortable on getting to home today Objective - Vital Signs Vital signs: Vital Signs Temp 99.8 F H 02/07/18 15:00 Pulse 112 H 02/07/18 15:00 Resp 16 02/07/18 15:00 BP 114/69 02/07/18 15:00 Pulse Ox 91 L 02/07/18 15:00 Intake & Output 02/07/18 02/07/18 02/08/18 06:59 18:59 06:59 Output Total 450 Balance -450 Output: Urine 450 Other: Voiding Method Indwelling Catheter Indwelling Catheter # Voids 2 - Constitutional General appearance: Present: cooperative, no acute distress - EENT Eyes: Present: EOMI, PERRLA, dentition normal, normal appearance ENT: Present: NA/AT, normal oropharynx - Neck Neck: Present: normal ROM. Absent: lymphadenopathy, other, rigidity, stridor, thyromegaly - Respiratory Respiratory: bilateral: CTA, negative: diminished, dullness, rales - Cardiovascular Rhythm: regular Heart sounds: normal: S1, S2 Abnormal Heart Sounds: Absent: systolic murmur, diastolic murmur, rub, S3 Gallop , S4 Gallop, click, other - Gastrointestinal General gastrointestinal: Present: soft - Integumentary Integumentary: Present: normal, normal turgor - Neurologic Neurologic: Present: CNII-XII intact - Musculoskeletal Musculoskeletal: Present: gait normal, strength equal bilaterally - Psychiatric Psychiatric: Present: A&O x's 3, appropriate affect, intact judgment & insight - Labs CBC & Chem 7: 02/06/18 06:30 02/06/18 06:30 Labs: Abnormal Lab Results - Last 24 Hours (Table) 02/06/18 02/07/18 02/07/18 Range/Units 20:58 06:54 11:22 POC Glucose (mg/dL) 130 H 108 H 110 H (75-99) mg/dL Assessment and Plan Plan: #1 osteoarthritis of left shoulder status post left total shoulder arthroplasty. 02/05. Encourage mobility. Continue incentive spirometry for pulmonary prophylaxis. Pain management per primary team. norco 7.5 with bm protocolol #2 type 2 diabetes with diabetic neuropathy continue metformin. Continue Neurontin 300 mg twice daily CMP unremarkable. #3 hyperlipidemia continue Zocor 20 mg daily at bedtime #4 depression/anxiety continue sertraline 200 mg daily at bedtime #5 urinary retention likely secondary to BPH. Flomax initiated. For catheter placed with discharge instructions on how to care for Andrews catheter, outpatient follow-up with Dr. Jewels Hernándezey catheter to be discontinued in February 09 in urology office
--- NOTE | 2018-02-08 09:50 | P.DS ---
Providers Date of admission: 02/05/18 13:47 Expected date of discharge: 02/07/18 Attending physician: Dilshad Leyva Consults: 02/05/18 17:32 Consult Physician Routine Consulting Provider: Clifotn Yoder Consult Reason/Comments: post op medical management Do you want consulting provider notified?: Yes 02/06/18 15:21 Consult Physician Routine Consulting Provider: Sahil Donis Consult Reason/Comments: Urine Retention Do you want consulting provider notified?: Already Contacted Primary care physician: Clifton Yoder - Discharge Diagnosis(es) (1) Primary osteoarthritis, left shoulder Status: Acute (2) Status post total shoulder arthroplasty Status: Acute Hospital Course: This is a 72-year-old male with known history of degenerative arthritis of the left shoulder. The patient presents for evaluation. After discussion and consideration patient elects to proceed with total shoulder arthroplasty. The patient is seen preoperatively by Dr. Leyva and medically cleared for surgery by their primary care physician. Patient is admitted to [facility] on 02/05/2018 for total knee arthroplasty. The procedures performed without complication or sequelae. The patient is doing well postoperatively. Labs and vital signs are stable on day of discharge. Patient's discharge was postponed due to urinary retention. Urology is consulted and will follow patient as an outpatient. On day of discharge patient's shoulder incision is healing well. There is minimal erythema. There is no drainage noted at this time. There is minimal soft tissue swelling to the left shoulder. Patient has full left hand and wrist motion without difficulty or pain. Neurovascular status to the left upper extremity is intact. Patient is discharged home in good condition. Please see med rec for accurate list of home medications. Patient Condition at Discharge: Good Plan - Discharge Summary Discharge Rx Participant: Yes New Discharge Prescriptions: New Docusate [Colace] 100 mg PO BID #60 capsule Doxycycline Hyclate 100 mg PO BID #10 tab HYDROcodone/APAP 7.5-325MG [[place] 7.5-325] 1 - 2 tab PO Q6HR PRN #60 tab PRN Reason: Pain Tamsulosin [Flomax] 0.4 mg PO DAILY #14 cap Continue metFORMIN HCL [Glucophage] 500 mg PO BID Simvastatin [Zocor] 20 mg PO HS Sertraline [Zoloft] 200 mg PO HS Ibuprofen [Motrin] 800 mg PO BID Gabapentin [Neurontin] 300 mg PO BID Discharge Medication List Gabapentin [Neurontin] 300 mg PO BID 01/26/18 [History] Ibuprofen [Motrin] 800 mg PO BID 01/26/18 [History] Sertraline [Zoloft] 200 mg PO HS 01/26/18 [History] Simvastatin [Zocor] 20 mg PO HS 01/26/18 [History] metFORMIN HCL [Glucophage] 500 mg PO BID 01/26/18 [History] Docusate [Colace] 100 mg PO BID #60 capsule 02/06/18 [Rx] Doxycycline Hyclate 100 mg PO BID #10 tab 02/06/18 [Rx] HYDROcodone/APAP 7.5-325MG [[place] 7.5-325] 1 - 2 tab PO Q6HR PRN #60 tab [Rx] Tamsulosin [Flomax] 0.4 mg PO DAILY #14 cap 02/07/18 [Rx] Follow up Appointment(s)/Referral(s): Sahil Donis MD [STAFF PHYSICIAN] - 02/09/18 9:00 am Clifton Yoder MD [Primary Care Provider] - 02/13/18 10:45 am Dilshad Leyva MD [STAFF PHYSICIAN] - 02/16/18 8:00 am Patient Instructions/Handouts: Andrews Catheter Placement and Care (DC), Joint Replacement Surgery (DC) Activity/Diet/Wound Care/Special Instructions: Keep wound clean and dry Take meds as directed Follow-up with Dr. Leyva in office Non weightbearing Discharge home with Andrews Discharge Disposition: HOME SELF-CARE
--- NOTE | 2018-02-10 08:10 | CDI ---
Last Revision, September 2017 Documentation Clarification Form Date: 02/10/18 08:00 From: Keerthi Thompson RN Admit Date: 02/05/2018 1:47:00 PM Patient Name: Stanford Suazo Visit Number: [id number] Discharge Date: 02/07/18 ATTENTION: The Clinical Documentation Specialists (CDI) and [facility] Coding Staff appreciate your assistance in clarifying documentation. Please respond to the clarification below the line at the bottom and electronically sign. The CDI & [facility] Coding staff will review the response and follow-up if needed. Please note: Queries are made part of the Legal Health Record. If you have any questions, please contact the author of this message via ITS. Dr. Sahil Donis, Patients Admitting Diagnosis: Osteoarthritis of the left shoulder Post-Operative Diagnosis: Same Procedure performed: left shoulder Arthroplasty History/Risk Factors: Deafness, hyperlipidemia, arthritis, dm 2, x smoker, osteoarthritis Clinical Indicators: Patient had to be straight cath. twice, sent home with gregorio catheter Treatment: Straight cath. x2, home with gregorio Flomax initiated Consults: Surgical consult Urology In order to accurately reflect this patients severity of illness, please clarify if the post-operative diagnosis of Urinary Retention is: An expected post-procedural or post-surgical condition; Integral to the procedure; Inherent to the procedure; An unexpected post-procedural or post-surgical condition related to surgical care; Other, please specify Unable to determine Please continue to document in your progress notes, under the line below and/ or in the discharge summary in order to capture severity of illness and risk of mortality. Include clinical findings that support your diagnosis. Urinary retention is an unexpected post-operative condition related to surgical care. CRYSTALD
== END 2018-02-07 16:40 | disposition home or self-care (01) | DRG 483 ==
LOC: 2ORMAIN 13:47 → 3SUR 17:35
PROVIDERS: ADMIT Orthopaedic Surgery Sports Medicine; ATTEND Orthopaedic Surgery Sports Medicine
PROC: 0LS40ZZ Reposition Left Upper Arm Tendon, Open Approach (ICD-10-PCS; 2018-02-05)
PROC: 0RRK0JZ Replacement of Left Shoulder Joint with Synthetic Substitute, Open Approach (ICD-10-PCS; principal; 2018-02-05 16:20)
DX: M19.012 Primary osteoarthritis, left shoulder (principal); C90.00 Multiple myeloma not having achieved remission; E11.40 Type 2 diabetes mellitus with diabetic neuropathy, unspecified; N99.89 Other postprocedural complications and disorders of genitourinary system; R33.8 Other retention of urine; E78.00 Pure hypercholesterolemia, unspecified; K21.9 Gastro-esophageal reflux disease without esophagitis; N40.0 Benign prostatic hyperplasia without lower urinary tract symptoms; M48.00 Spinal stenosis, site unspecified; F32.9 Major depressive disorder, single episode, unspecified; F41.9 Anxiety disorder, unspecified; E78.5 Hyperlipidemia, unspecified; H91.90 Unspecified hearing loss, unspecified ear; Z79.1 Long term (current) use of non-steroidal anti-inflammatories (NSAID); Z79.84 Long term (current) use of oral hypoglycemic drugs; Z79.899 Other long term (current) drug therapy; Z88.8 Allergy status to other drugs, medicaments and biological substances; Z96.653 Presence of artificial knee joint, bilateral; Z98.42 Cataract extraction status, left eye; Z98.41 Cataract extraction status, right eye; Z87.891 Personal history of nicotine dependence; Z83.3 Family history of diabetes mellitus
CPT/HCPCS: 64415; 80048; 85025; 88300; 93005

== ENCOUNTER 2021-03-13 09:51 | Emergency (ER) | payer MEDICARE ==
[2021-03-13] MEDS ORDERED: diphenhydrAMINE 50 MG/ML 1 ML VIAL IVP STA (10:25)
[2021-03-13] MEDS ORDERED: MECLIZINE 12.5 MG TAB PO STA (10:25)
[2021-03-13] MEDS ORDERED: SODIUM CHLORIDE 0.9% 1,000 ML IV STA (10:25)
[2021-03-13 10:56] LABS: Basophils % (A) 0 %; Eosinophils # (A) 0.1 k/uL (0-0.7); Eosinophils % (A) 2 %; HCT 42.6 % (39.0-53.0); HGB 14.6 gm/dL (13.0-17.5); Lymphocytes # (A) 1.3 k/uL (1.0-4.8); Lymphocytes % (A) 17 %; MCH 30.8 pg (25.0-35.0); MCHC 34.2 g/dL (31.0-37.0); Mean Platelet Volume 7.1; Monocytes # (A) 0.5 k/uL (0-1.0); Monocytes % (A) 6 %; Neutrophils # (A) 5.9 k/uL (1.3-7.7); Neutrophils % (A) 74 %; Platelet Count 192 k/uL (150-450); RBC 4.73 m/uL (4.30-5.90); RDW 12.6 % (11.5-15.5)
[2021-03-13 11:06] LABS: ALT 26 U/L (4-49); AST 20 U/L (17-59); African American GFR (CKD) >90 (>60 ml/min/1.73 sqM); Albumin 4.1 g/dL (3.5-5.0); Alkaline Phosphatase 73 U/L (38-126); Anion Gap 8 mmol/L; Blood Urea Nitrogen 22 mg/dL (9-20); Calcium 9.3 mg/dL (8.4-10.2); Carbon Dioxide 22 mmol/L (22-30); Chloride 110 mmol/L (98-107); Glucose 106 mg/dL (74-99); Non-African American GFR(CKD) 87 (>60 ml/min/1.73 sqM); Potassium 4.2 mmol/L (3.5-5.1); Sodium 140 mmol/L (137-145); Total Bilirubin 0.5 mg/dL (0.2-1.3); Total Protein 7.2 g/dL (6.3-8.2)
--- NOTE | 2021-03-13 11:34 | XR ---
EXAMINATION TYPE: XR chest 2V DATE OF EXAM: 03/13/2021 COMPARISON: NONE HISTORY: Dizziness TECHNIQUE: Frontal and lateral views of the chest are obtained. FINDINGS: Heart size is within normal limits. Prominent aortic knob with tortuous thoracic aorta. Mi nimal linear bibasilar atelectasis or scarring. Minimal patchy airspace opacity at the right lower lo be may represent developing pneumonia. No pleural effusion or pneumothorax. Mild hyperaeration of delta gs and flattening of the diaphragms with increased retrosternal airspace may represent COPD. Degenera tive changes of the thoracic spine. Bilateral shoulder prostheses. IMPRESSION: 1. Mild linear bibasilar atelectasis or scarring. Minimal patchy airspace opacity at the right lower lobe may represent developing pneumonia. 2. Hyperaeration lung suggestive of possible COPD. 3. Bilateral shoulder prostheses are partially visualized.
--- NOTE | 2021-03-13 11:37 | CT ---
EXAMINATION TYPE: CT brain wo con DATE OF EXAM: 03/13/2021 HISTORY: Dizziness CT DLP: 1088.4 mGycm. Automated Exposure Control for Dose Reduction was Utilized. TECHNIQUE: CT scan of the head is performed without contrast. COMPARISON: None. FINDINGS: There is no acute intracranial hemorrhage or midline shift identified. There is mild to m oderate diffuse ventricular and sulcal prominence consistent with diffuse age-related cerebral atroph y greatest over bilateral frontal lobes. Villavicencio-white matter differentiation is maintained. No suspicio us opacification mastoid air cells. The globes are intact and the visualized sinuses are clear. IMPRESSION: No acute intracranial hemorrhage or midline shift. There is mild to moderate diffuse ag e-related cerebral atrophy noted.
--- NOTE | 2021-03-13 12:12 | ED ---
Dizziness HPI - General Chief Complaint: Dizziness Stated Complaint: dizziness Time Seen by Provider: 03/13/21 10:17 Source: patient Mode of arrival: wheelchair Limitations: physical limitation - History of Present Illness Initial Comments: 75-year-old male presenting to the ER today for chief complaint of dizziness. Patient states he is troubled with dizziness in the past he states he has not had it about 7 years. Patient states he felt dizzy since this mornign. denies feel off balance but when he moves head or walks he feels like the room is spin brent. Denies nausea, vomiting, headache. he states he has a full head sensation. denies vision changes, weakness, sensation deficits. Patient denies fevers. Pt denies hearing loss, ringing in his ears. Pt denies an additional complaints. states now the dizziness is getting better. - Related Data Home Medications Medication Instructions Recorded Confirmed Ibuprofen [Motrin] 800 mg PO BID 01/26/18 03/13/21 Sertraline [Zoloft] 200 mg PO HS 01/26/18 03/13/21 Simvastatin [Zocor] 20 mg PO HS 01/26/18 03/13/21 metFORMIN HCL [Glucophage] 500 mg PO BID 01/26/18 03/13/21 Gabapentin [Neurontin] 200 mg PO BID 03/13/21 03/13/21 Ubidecarenone [Co Q-10] 200 mg PO DAILY 03/13/21 03/13/21 Previous Rx's Medication Instructions Recorded Meclizine [Antivert] 25 mg PO BID 7 Days #14 tab 03/13/21 Allergies Allergy/AdvReac Type Severity Reaction Status Date / Time warfarin [From Coumadin] Allergy CAUSES Verified 03/13/21 12:08 BLOOD TO CLOT PER PT Review of Systems ROS Statement: Those systems with pertinent positive or pertinent negative responses have been documented in the HPI. ROS Other: All systems not noted in ROS Statement are negative. Past Medical History Past Medical History: Diabetes Mellitus, Hyperlipidemia, Osteoarthritis (OA) History of Any Multi-Drug Resistant Organisms: None Reported Past Surgical History: Cholecystectomy, Joint Replacement, Orthopedic Surgery Additional Past Surgical History / Comment(s): BILAT TKA, LT SIDE PELVIC RECONSTRUCTION, BILAT CTR, BILAT CATARACTS REMOVED, COLONOSCOY, LASER SX BILAT EYES AFTER CATARACT SX, RT SHOULDER REPLACEMENT, LEFT ORCHIECTOMY Past Anesthesia/Blood Transfusion Reactions: No Reported Reaction Past Psychological History: Anxiety, Depression Smoking Status: Never smoker Past Alcohol Use History: None Reported Past Drug Use History: None Reported - Past Family History Mother Family Medical History: No Reported History Additional Family Medical History / Comment(s): Mother had an aneurysm rupture at 88 Father Family Medical History: CVA/TIA, Diabetes Mellitus Additional Family Medical History / Comment(s): Patient had 3 brothers and one brother having rheumatoid arthritis. One sister of brain aneurysm at the age of 31. He has 2 kids 1 boy and a girl with no significant medical problems General Exam - General Exam Comments Initial Comments: General: The patient is awake and alert, in no distress Eye: +3 mm pupils are equal, round and reactive to light, extra-ocular movements are intact. No nystagmus. There is normal conjunctiva bilaterally. No signs of icterus. Ears, nose, mouth and throat: There are moist mucous membranes and no oral lesions. Neck: The neck is supple, there is no tenderness or JVD. Cardiovascular: There is a regular rate and rhythm. No murmur, rub or gallop is appreciated. Respiratory: Lungs are clear to auscultation, respirations are non-labored, breath sounds are equal. No wheezes, stridor, rales, or rhonchi. Gastrointestinal: Soft, non-distended, non-tender abdomen without masses or organomegaly noted. There is no rebound or guarding present. Musculoskeletal: Normal ROM, no tenderness. Strength 5/5. Sensation intact. Radial and DP pulses equal bilaterally 2+. Neurological: A&O x 3. CN II-XII intact, no pronator drift. There are no obvious motor or sensory deficits. Coordination appears grossly intact. Speech is normal. FInger to nose, gati and heel to darden very smooth and coordinated. Skin: Skin is warm and dry and no rashes or lesions are noted. No LE edema, no calf pain. Psychiatric: Cooperative, appropriate mood & affect, normal judgment. Limitations: physical limitation Course Vital Signs 03/13/21 03/13/21 03/13/21 10:03 11:27 12:14 Temperature 98.0 F Pulse Rate 57 L 55 L 59 L Respiratory 18 18 14 Rate Blood Pressure 123/73 O2 Sat by Pulse 98 98 96 Oximetry 03/13/21 12:32 Temperature 97.8 F Pulse Rate 60 Respiratory 18 Rate Blood Pressure 135/77 O2 Sat by Pulse 96 Oximetry Medical Decision Making - Medical Decision Making 35-year-old male presenting for dizziness. History of vertigo he states that he was told he had inner ear problems. Patient states that he dizziness this morning, as in the sensation that the room is spinning he denies any presyncopal sensation or lightheadedness. Patient states is now resolving. Patient states he feels much better after the meclizine and Benadryl. Overall patient's workup unremarkable. nothign acute to identify or account for patient symptoms. pt case discussed wtih Dr Viera who is agreeable to dsicharge wtih close pcp f/u and return for worsening symptoms. - Lab Data Result diagrams: 03/13/21 10:33 03/13/21 10:33 Lab Results 03/13/21 03/13/21 03/13/21 Range/Units 10:33 10:33 10:33 WBC 8.0 (3.8-10.6) k/uL RBC 4.73 (4.30-5.90) m/uL Hgb 14.6 (13.0-17.5) gm/dL Hct 42.6 (39.0-53.0) % MCV 90.0 (80.0-100.0) fL MCH 30.8 (25.0-35.0) pg MCHC 34.2 (31.0-37.0) g/dL RDW 12.6 (11.5-15.5) % Plt Count 192 (150-450) k/uL MPV 7.1 Neutrophils % 74 % Lymphocytes % 17 % Monocytes % 6 % Eosinophils % 2 % Basophils % 0 % Neutrophils # 5.9 (1.3-7.7) k/uL Lymphocytes # 1.3 (1.0-4.8) k/uL Monocytes # 0.5 (0-1.0) k/uL Eosinophils # 0.1 (0-0.7) k/uL Basophils # 0.0 (0-0.2) k/uL Sodium 140 (137-145) mmol/L Potassium 4.2 (3.5-5.1) mmol/L Chloride 110 H (98-107) mmol/L Carbon Dioxide 22 (22-30) mmol/L Anion Gap 8 mmol/L BUN 22 H (9-20) mg/dL Creatinine 0.80 (0.66-1.25) mg/dL Est GFR (CKD-EPI)AfAm >90 (>60 ml/min/1.73 sqM) Est GFR (CKD-EPI)NonAf 87 (>60 ml/min/1.73 sqM) Glucose 106 H (74-99) mg/dL Plasma Lactic Acid Alex 0.9 (0.7-2.0) mmol/L Calcium 9.3 (8.4-10.2) mg/dL Total Bilirubin 0.5 (0.2-1.3) mg/dL AST 20 (17-59) U/L ALT 26 (4-49) U/L Alkaline Phosphatase 73 (38-126) U/L Troponin I (0.000-0.034) ng/mL Total Protein 7.2 (6.3-8.2) g/dL Albumin 4.1 (3.5-5.0) g/dL 03/13/21 Range/Units 10:33 WBC (3.8-10.6) k/uL RBC (4.30-5.90) m/uL Hgb (13.0-17.5) gm/dL Hct (39.0-53.0) % MCV (80.0-100.0) fL MCH (25.0-35.0) pg MCHC (31.0-37.0) g/dL RDW (11.5-15.5) % Plt Count (150-450) k/uL MPV Neutrophils % % Lymphocytes % % Monocytes % % Eosinophils % % Basophils % % Neutrophils # (1.3-7.7) k/uL Lymphocytes # (1.0-4.8) k/uL Monocytes # (0-1.0) k/uL Eosinophils # (0-0.7) k/uL Basophils # (0-0.2) k/uL Sodium (137-145) mmol/L Potassium (3.5-5.1) mmol/L Chloride (98-107) mmol/L Carbon Dioxide (22-30) mmol/L Anion Gap mmol/L BUN (9-20) mg/dL Creatinine (0.66-1.25) mg/dL Est GFR (CKD-EPI)AfAm (>60 ml/min/1.73 sqM) Est GFR (CKD-EPI)NonAf (>60 ml/min/1.73 sqM) Glucose (74-99) mg/dL Plasma Lactic Acid Alex (0.7-2.0) mmol/L Calcium (8.4-10.2) mg/dL Total Bilirubin (0.2-1.3) mg/dL AST (17-59) U/L ALT (4-49) U/L Alkaline Phosphatase (38-126) U/L Troponin I <0.012 (0.000-0.034) ng/mL Total Protein (6.3-8.2) g/dL Albumin (3.5-5.0) g/dL Disposition Clinical Impression: Dizziness Disposition: HOME SELF-CARE Condition: Good Instructions (If sedation given, give patient instructions): Dizziness (ED) Additional Instructions: Please use medication as discussed. Please follow-up with family doctor in the next 2 days.. Please return to emergency room if the symptoms increase or worsen or for any other concerns. Prescriptions: Meclizine [Antivert] 25 mg PO BID 7 Days #14 tab Is patient prescribed a controlled substance at d/c from ED?: No When asked, does pt state using other controlled substances?: No Referrals: Clifton Yoder MD [Primary Care Provider] - 1-2 days Time of Disposition: 12:11
[2021-03-13 12:34] VITALS: BP 135/77; PULSE 60; RESP 18; TEMP 97.8
== END 2021-03-13 12:52 | disposition home or self-care (01) ==
LOC: EC 09:51
DX: R42 Dizziness and giddiness (principal); E78.5 Hyperlipidemia, unspecified; M19.90 Unspecified osteoarthritis, unspecified site; Z79.1 Long term (current) use of non-steroidal anti-inflammatories (NSAID); Z79.84 Long term (current) use of oral hypoglycemic drugs; Z79.899 Other long term (current) drug therapy; Z90.79 Acquired absence of other genital organ(s); Z96.611 Presence of right artificial shoulder joint; Z96.612 Presence of left artificial shoulder joint; Z96.653 Presence of artificial knee joint, bilateral; Z83.3 Family history of diabetes mellitus; Z88.3 Allergy status to other anti-infective agents
CPT/HCPCS: 36415; 93005; 80053; 83605; 84484; 85025; 71046; 70450; 99284; 96374; 96361 ×2; J1200